=== PATIENT | male | born 1965 | race Caucasian/White ===

== ENCOUNTER 2016-08-31 17:16 | Emergency (ER) | payer OTHER ==
[~2016-08-31] VITALS: Ht 182.9 cm; Wt 96.0 kg
[2016-08-31 17:34] VITALS: Ht 182.9 cm; Wt 96.0 kg
--- NOTE | 2016-08-31 18:43 | EN ---
Date/Time of Note Date/Time of Note DATE: 08/31/16 TIME: 18:41 ER Progress Note This 50-year-old male presents here in emergency department for complaints of left foot pain, noted redness and swelling of the left foot, more on the medial side, more on the first metatarsal aspect. Patient did not have any trauma and affected area. Patient discussed the pain sharp pain, succession scale, is worse upon touching the area. Upon evaluation of patient's left foot, redness and swelling noted in the area in the medial aspect of the foot in the level of the first metatarsal, possible further evaluation may be necessary maybe needing radiology exam or uric acid testing laboratory testing, patient states that he had an episode of chills last night. Patient was initially evaluated here in rapid medical evaluation, will be waiting for ER2 bed for further evaluation and treatment COSMO LEI NP Aug 31, 2016 18:43
--- NOTE | 2016-08-31 19:45 | RADRPT ---
PROCEDURE: XR Left foot. CLINICAL INDICATION: Left foot pain TECHNIQUE: Three views of the left foot were obtained. COMPARISON: No prior studies are available for comparison. FINDINGS: There is no acute fracture or dislocation. Alignment is normal. Joint spaces are preserved. Visualized soft tissues are grossly unremarkable. IMPRESSION: 1. No radiographic evidence of acute osseous abnormality of the left foot. RPTAT: [facility]U .Jordon Cedeno MD, MD Date Time Electronically viewed and signed by .Jordon Cedeno MD, on 08/31/2016 19:44 .K/
[2016-08-31 19:53] LABS: ALBUMIN 4.6 g/dl (3.3-4.9)
[2016-08-31 19:54] LABS: POTASSIUM 3.6 mmol/L (3.5-5.1)
[2016-08-31 19:56] LABS: ALBUMIN/GLOBULIN RATIO 1.17; BILIRUBIN,INDIRECT 0.4 mg/dl (0-1.1); BILIRUBIN,TOTAL 0.4 mg/dl (0.2-1.3); CREATININE 0.94 mg/dl (0.61-1.24); TOTAL PROTEIN 8.5 g/dl (6.1-8.1)
[2016-08-31 19:57] LABS: CALCIUM 9.6 mg/dl (8.4-10.2); URIC ACID 7.3 mg/dl (3.1-7.9)
[2016-08-31] MEDS ORDERED: HYDROCODONE/APAP (5/325) TAB PO ONE (20:00)
[2016-08-31 20:07] LABS: BASOPHIL # 0.1 10^3/ul (0.0-0.1); BASOPHILS % 0.5 % (0.0-2.0); EOSINOPHILS # 0.2 10^3/ul (0.0-0.5); EOSINOPHILS % 1.4 % (0.0-7.0); HEMATOCRIT 40.5 % (42.0-52.0); HEMOGLOBIN 14.1 g/dl (14.0-18.0); LYMPHOCYTES # 2.4 10^3/ul (0.8-2.9); LYMPHOCYTES % 21.5 % (15.0-51.0); MEAN CORPUSCULAR HEMOGLOBIN 28.5 pg (29.0-33.0); MEAN CORPUSCULAR HGB CONC 34.9 g/dl (32.0-37.0); MEAN CORPUSCULAR VOLUME 81.7 fl (82.0-101.0); MEAN PLATELET VOLUME 7.4 fl (7.4-10.4); MONOCYTE # 0.5 10^3/ul (0.3-0.9); NEUTROPHIL # 7.9 10^3/ul (1.6-7.5); NEUTROPHILS % 71.6 % (39.0-77.0); PLATELET COUNT 280 10^3/UL (140-440); RED BLOOD COUNT 4.96 10^6/ul (4.70-6.10); RED CELL DISTRIBUTION WIDTH 12.6 % (11.5-14.5)
[2016-08-31 20:10] LABS: CONDITION 1; LH ANALYZER COMMENTS 1
[2016-08-31] MEDS ORDERED: HYDR-906 PO (20:21)
[2016-08-31] MEDS ORDERED: IBUP-1542 PO (20:21)
[2016-08-31 20:35] VITALS: BP 176/84; PULSE 64; RESP 18; TEMP 98.4
--- NOTE | 2016-08-31 21:09 | ERD ---
ER Documentation Chief Complaint Date/Time DATE: 08/31/16 TIME: 21:05 Chief Complaint L foot pain since yesterday morning, no trauma. HPI This is a 50-year-old male presents to the ER with left foot pain that started yesterday morning. Patient states that he did not have any trauma to the area. Pain is severe and constant is worse whenever he walks. Is located at the bottom of his foot and the first digit is nonradiating. Patient states that he did have an episode of chills last night however he denies fever. Patient tried taking Motrin however did not work. ROS 12 point review of systems was done, all negative except per HPI. Medications Home Meds Active Scripts Hydrocodone/Acetaminophen (Lyons 5-325 Tablet) 1 Each Tablet, 1 TAB PO Q6H Y for PAIN, #20 TAB Prov:MARY VENTURA 08/31/16 Ibuprofen* (Motrin*) 600 Mg Tab, 600 MG PO Q6, #30 TAB Prov:LORENZO,MARY C 08/31/16 Allergies Allergies: Coded Allergies: No Known Drug Allergies (Verified Allergy, Unknown, 08/31/16) PMhx/Soc Hx Cardiac Disorders: Yes (htn) Hx Alcohol Use: Yes (occassional) Hx Substance Use: No Smoking Status: Current some day smoker Physical Exam Vitals Vital Signs Date Time Temp Pulse Resp B/P Pulse Ox O2 Delivery O2 Flow Rate FiO2 08/31/16 20:35 98.4 64 18 176/84 99 Room Air 08/31/16 17:34 98.4 66 18 192/92 98 Physical Exam GENERAL: The patient is well developed and appropriate for usual state of health , in no apparent distress. HEENT: Atraumatic. CHEST: Clear to auscultation bilaterally. There are no rales, wheezes or rhonchi. HEART: Regular rate and rhythm. No murmurs, clicks, rubs or gallops. BACK: No midline or flank tenderness. EXTREMITIES: Left foot: She has tender to palpation at the base of the first metatarsal head. Slight erythema to the area patient has full range of motion of his foot. Last 2 pulses normal capillary refill. Foot is warm to the touch. Is no ankle tenderness. NEURO: Alert and oriented. Result Diagram: 1/18/17 1925 1/18/17 1925 Results 24 hrs Laboratory Tests Test 08/31/16 19:25 Alanine Aminotransferase (ALT/SGPT) 35IU/L Albumin 4.6g/dl Albumin/Globulin Ratio 1.17 Alkaline Phosphatase 78IU/L Anion Gap 18 Aspartate Amino Transf (AST/SGOT) 22IU/L Basophils # 0.110^3/ul Basophils % 0.5% Blood Morphology Comment Blood Urea Nitrogen 18mg/dl Calcium Level 9.6mg/dl Carbon Dioxide Level 30mmol/L Chloride Level 102mmol/L Creatinine 0.94mg/dl Direct Bilirubin 0.00mg/dl Eosinophils # 0.210^3/ul Eosinophils % 1.4% Globulin 3.90g/dl Glucose Level 95mg/dl Hematocrit 40.5% Hemoglobin 14.1g/dl Indirect Bilirubin 0.4mg/dl Lymphocytes # 2.410^3/ul Lymphocytes % 21.5% Mean Corpuscular Hemoglobin 28.5pg Mean Corpuscular Hemoglobin Concent 34.9g/dl Mean Corpuscular Volume 81.7fl Mean Platelet Volume 7.4fl Monocytes # 0.510^3/ul Monocytes % 5.0% Neutrophils # 7.910^3/ul Neutrophils % 71.6% Nucleated Red Blood Cells # 0.010^3/ul Nucleated Red Blood Cells % 0.0/100WBC Platelet Count 46253^3/UL Potassium Level 3.6mmol/L Red Blood Count 4.9610^6/ul Red Cell Distribution Width 12.6% Sodium Level 146mmol/L Total Bilirubin 0.4mg/dl Total Protein 8.5g/dl Uric Acid 7.3mg/dl White Blood Count 11.010^3/ul Current Medications Medications (Trade) Dose Ordered Sig/Toby Route PRN Reason Start Time Stop Time Status Last Admin Dose Admin Acetaminophen/ Hydrocodone Bitart (Lyons (5/325)) 1 tab ONCE ONCE PO 08/31/16 20:00 08/31/16 20:01 DC 08/31/16 19:46 Procedures/MDM Differential diagnosis includes but is not limited to; foot contusion, foot fracture, dislocation, gout, septic joint, osteomyelitis. This is a 50-year-old male presents to the ER with left foot pain. I do not believe that this is infectious in etiology as patient is afebrile and well-appearing. Do not believe that this is septic joint as patient has full range of motion of his first digit and of his entire foot. This may be gout as it is sudden in onset and there is slight erythema to the area. I do not believe this is cellulitis or any other skin infection. Patient x-ray was normal. Patient will be sent home with ibuprofen and with Lyons. He is to follow-up with his primary care doctor within 1-2 days or return to ER sooner symptoms worsen. Medical decision making was shared with the patient she understands and agrees with plan. Patient's blood pressure was elevated at this time however he is on any hypertensive emergency or urgency. he was told to follow-up with his primary care doctor regarding his blood pressure as soon as possible. Departure Diagnosis: Primary Impression: Foot pain Condition: Stable Patient Instructions: Pain Management Referrals: PHANI DE LEON MD (PCP) Additional Instructions: Call your primary care doctor TOMORROW for an appointment during the next 1-2 days.See the doctor sooner or return here if your condition worsens before your appointment time. MARY VENTURA Aug 31, 2016 21:09
== END 2016-08-31 20:35 | disposition home or self-care (01) ==
LOC: FTE 17:16
DX: M79.672 Pain in left foot (principal); I10 Essential (primary) hypertension; F17.210 Nicotine dependence, cigarettes, uncomplicated
CPT/HCPCS: 80053; 84560; 85025

== ENCOUNTER 2017-08-11 17:56 | Emergency (ER) | payer SELFPAY ==
[~2017-08-11] VITALS: Ht 182.9 cm; Wt 93.9 kg
[~2017-08-11 17:56] MED LIST: HYDR-906 PO; IBUP-1542 PO
[2017-08-11 18:36] VITALS: Ht 182.9 cm; Wt 93.9 kg
== END 2017-08-12 02:37 | disposition left against medical advice (07) ==
LOC: FTE 17:56
DX: Z53.21 Procedure and treatment not carried out due to patient leaving prior to being seen by health care provider (principal)

== ENCOUNTER 2017-10-03 08:49 | Emergency (ER) | END 2017-10-03 13:43 | disposition home or self-care (01) ==

== ENCOUNTER 2019-05-06 16:44 | Emergency (ER) | payer OTHER ==
[~2019-05-06] VITALS: Ht 177.8 cm; Wt 96.4 kg
[~2019-05-06 16:44] MED LIST changes: +CEPH-443 PO; +HYDR-4011 PO; -HYDR-906 PO; +NAPR-985 PO; +SULF1TAB31 PO
[2019-05-06 17:05] VITALS: Ht 177.8 cm; Wt 96.4 kg
[2019-05-06] MEDS ORDERED: IBUPROFEN 800 MG TAB PO STA (18:36)
[2019-05-06] MEDS ORDERED: HYDROCODONE/APAP (5/325) TAB PO STA (18:36)
[2019-05-06] MEDS ORDERED: LIDOCAINE 2%/EPI MPF (SDV) 20 ML VIAL INJ STA (18:36)
[2019-05-06] MEDS ORDERED: DIPHTH/TET/ACEL PERTUSS (ADULT) 0.5 ML VIAL IM* ONE (19:00)
[2019-05-06 20:59] VITALS: BP 164/103; PULSE 56; RESP 16
== END 2019-05-06 21:01 | disposition home or self-care (01) ==
LOC: FTE 16:44
DX: S51.811A Laceration without foreign body of right forearm, initial encounter (principal); I10 Essential (primary) hypertension; W25.XXXA Contact with sharp glass, initial encounter; Y92.89 Other specified places as the place of occurrence of the external cause; Z23 Encounter for immunization
CPT/HCPCS: 90471; 90715